=== PATIENT | male | born 1965 | race Caucasian/White ===

== ENCOUNTER 2016-11-25 10:03 | Outpatient (CLI) | payer OTHER ==
--- NOTE | 2016-11-25 11:54 | DIAGNOSTIC IMAGING REPORT ---
PROCEDURE: CT SINUS/FACIAL BONES W/O CONT CLINICAL INDICATION: FACIAL PRESSURE TECHNIQUE: Noncontrast axial CT images through the sinuses. Coronal and sagittal reformations were created. COMPARISON: None. FINDINGS: There is a left orbital blowout fracture involving the floor of the orbit. There is soft tissue herniation of through the fracture. There is a fluid in the left maxillary sinus. There is minimal mucoperiosteal thickening in the right frontal in the right maxillary sinuses. The nasal septum is midline without significant spurring. Nasal passages are patent with normal nasal turbinate morphology. Temporomandibular joints are normally aligned. Bony orbits are intact. Orbital soft tissues appear normal. Facial soft tissues and visible glandular structures are symmetric. IMPRESSION: 1. Left orbital floor blowout fracture. All CT scans at this facility use dose modulation, iterative reconstruction, and/or weight-based dosing when appropriate to reduce radiation dose to as low as reasonably achievable.
== END 2016-11-25 23:00 ==
LOC: CT SRH 10:03
DX: S02.32XA Fracture of orbital floor, left side, initial encounter for closed fracture (principal)